=== PATIENT | female | born 1965 | race Caucasian/White ===

== ENCOUNTER 2021-05-31 18:33 | Emergency (ER) | payer MEDICAID ==
[~2021-05-31] VITALS: Ht 167.6 cm; Wt 89.4 kg
[2021-05-31 18:45] VITALS: BP 134/102
[2021-05-31] MEDS ORDERED: TOPI50TA PO (19:10)
[2021-05-31] MEDS ORDERED: AZIT250T13 PO (19:37)
[2021-05-31] MEDS ORDERED: BENZ-13 PO (19:37)
--- NOTE | 2021-06-05 09:06 | NUR ---
PT WAS CALLED IN REGARDS TO HER POSITIVE COVID PCR RESULT, PT WAS NOTIFIED OF HER RESULTS.
== END 2021-05-31 19:58 | disposition home or self-care (01) ==
LOC: ER 18:47
DX: U07.1 COVID-19 (principal); J20.8 Acute bronchitis due to other specified organisms; E11.9 Type 2 diabetes mellitus without complications; Z79.4 Long term (current) use of insulin; I10 Essential (primary) hypertension
CPT/HCPCS: 71045; 87804; 99284; C9803; U0003

== ENCOUNTER 2023-02-01 13:19 | Emergency (ER) | payer MEDICAID ==
[~2023-02-01] VITALS: Ht 167.6 cm; Wt 90.7 kg
[~2023-02-01 13:19] MED LIST: AZIT250T13 PO; BENZ-13 PO; GUAI-671 PO
[2023-02-01] MEDS ORDERED: predniSONE 20 MG TABLET ONE (14:22)
[2023-02-01] MEDS ORDERED: IPRATROPIUM NEB FS 0.5 MG/2.5 ML AMPUL.NEB NEB ONE (14:30)
[2023-02-01] MEDS ORDERED: predniSONE 20 MG TABLET PO ONE (14:30)
[2023-02-01] MEDS ORDERED: ALBUTEROL FS 2.5 MG/3 ML VIAL.NEB CONTNEB ONE (14:30)
[2023-02-01] MEDS ORDERED: IPRATROPIUM NEB FS 0.5 MG/2.5 ML AMPUL.NEB ONE (14:40)
[2023-02-01] MEDS ORDERED: ALBUTEROL FS 2.5 MG/3 ML VIAL.NEB ONE (14:40)
[2023-02-01 14:48] VITALS: O2SAT 97
[2023-02-01] MEDS ORDERED: BENZ-13 PO (16:05)
[2023-02-01] MEDS ORDERED: AMOX-430 PO (16:05)
[2023-02-01] MEDS ORDERED: ALBU18HF2 INH (16:05)
[2023-02-01] MEDS ORDERED: PRED20TA PO (16:05)
[2023-02-01] MEDS ORDERED: AZIT250T13 PO (16:05)
[2023-02-01 16:20] VITALS: O2SAT 99
[2023-02-01 16:36] VITALS: BP 158/88; TEMP 98; O2SAT 96
== END 2023-02-01 16:37 | disposition home or self-care (01) ==
LOC: ER 13:28
DX: J20.9 Acute bronchitis, unspecified (principal); R91.8 Other nonspecific abnormal finding of lung field; J18.9 Pneumonia, unspecified organism; J06.9 Acute upper respiratory infection, unspecified; R05.9 Cough, unspecified; R09.81 Nasal congestion; I10 Essential (primary) hypertension; E78.5 Hyperlipidemia, unspecified; Z60.2 Problems related to living alone; Z20.822 Contact with and (suspected) exposure to COVID-19
CPT/HCPCS: 99285; 71045; 87426; 94644; J7512; C9803

== ENCOUNTER 2023-05-13 18:40 | Emergency (ER) | payer MEDICAID ==
[~2023-05-13] VITALS: Ht 167.6 cm; Wt 102.1 kg
[~2023-05-13 18:40] MED LIST changes: +ALBU18HF2 INH; +AMOX-430 PO; +PRED20TA PO
[2023-05-13] MEDS ORDERED: KETO10TA2 PO (20:49)
[2023-05-13] MEDS ORDERED: KETOROLAC TROMETHAMINE 10 MG TABLET PO PRN (21:00)
[2023-05-13 21:17] VITALS: BP 152/97; TEMP 98.4; O2SAT 98
== END 2023-05-13 21:17 | disposition home or self-care (01) ==
LOC: ER 18:44
DX: M79.605 Pain in left leg (principal); I10 Essential (primary) hypertension; E11.9 Type 2 diabetes mellitus without complications; E78.5 Hyperlipidemia, unspecified; Z79.899 Other long term (current) drug therapy; Z60.2 Problems related to living alone
CPT/HCPCS: 36415; 73564-TC; 73590-TC; 85378-TC; 93971-TC